=== PATIENT | female | born 2005 | race Hispanic/Latino ===

== ENCOUNTER 2024-11-29 21:27 | Emergency (ER) | payer BC ==
[~2024-11-29] VITALS: Ht 160 cm; Wt 61.2 kg
[~2024-11-29 21:27] MED LIST: MACROBID 100 M100 MG PO; ONDANSETRON ODT4 MG PO; ULTRAM 50MG50 MG PO
[2024-11-29 21:35] VITALS: TEMP 98.5
[2024-11-29 22:26] LABS: COLOR,URINE YELLOW (YELLOW)
[2024-11-29 22:27] LABS: BILIRUBIN,URINE NEGATIVE (NEGATIVE); CLARITY,URINE SL CLOUDY (CLEAR); GLUCOSE, URINE NEGATIVE (NEGATIVE); KETONES,URINE NEGATIVE (NEGATIVE); LEUKOCYTE ESTERASE ,URINE TRACE (NEGATIVE); NITRITE,URINE NEGATIVE (NEGATIVE); PH,URINE 7 (5 - 7); PREGNANCY TEST, URINE NEGATIVE (NEGATIVE); PROTEIN,URINE DIPSTICK NEGATIVE (NEGATIVE); URINE UROBILINOGEN 0.2 mg/dL (0.2 - 1)
[2024-11-29 22:48] LABS: BACTERIA,URINE MANY /HPF; EPITHELIAL CELLS,URINE MODERATE /LPF
[2024-11-29 23:37] VITALS: PULSE 69; RESP 19
[2024-11-30 00:45] VITALS: BP 131/70; PULSE 77; RESP 19; TEMP 97.7; O2SAT 100
[2024-11-30] MEDS ORDERED: CEPHALEXIN500 MG PO (00:47)
== END 2024-11-30 00:51 | disposition home or self-care (01) ==
LOC: ER 21:31
DX: N93.8 Other specified abnormal uterine and vaginal bleeding (principal); R10.30 Lower abdominal pain, unspecified
CPT/HCPCS: 36415; 76830; 81001; 81025; 84702; 99283